=== PATIENT | male | born 2000 | race Caucasian/White ===

== ENCOUNTER 2025-06-04 01:19 | Outpatient (REF) | payer SELFPAY ==
--- OUTSIDE RECORDS SUMMARY | 2025-03-08 11:19 | XMS RPT_ITS ---
Author Name Auto Generated Organization OHIP Care Team Providers Care Airport Engineer Name Role Phone COY DURAN Attending Unavailable MARCO MCKENZIE Primary Care Unavailable LEANA MARTIN Attending Unavailable PROBLEMS DATE TYPE CONDITION / CODE ATTENDING STATUS [facility] 03/08/2025 Admitting Diagnosis Encounter for general adult medical examination without abnormal findings / Z00.00(ICD-10) ROGER COY Active [facility] 03/08/2025 Admitting Diagnosis Encounter for screening for lipoid disorders / Z13.220(ICD-10) [facility] COY Active [facility] 03/08/2025 Admitting Diagnosis Encounter for screening for diseases of the blood and blood-forming organs and certain disorders involving the immune mechanism / Z13.0(ICD-10) ROGER COY Active [facility] 03/08/2025 Admitting Diagnosis Encounter for screening for diabetes mellitus / Z13.1(ICD-10) ROGER COY Active [facility] 03/08/2025 Admitting Diagnosis Pityriasis rosea / L42(ICD-10) ROGER COY Active [facility] 02/08/2025 Active Laceration / UNK(Unknown) LEANA MARTIN Active [facility] PROCEDURES No Procedure Records Found RESULTS PROGRESS NOTE Observed: 03/08/2025 12:27 PM Status: COMPLETED Source: [facility] Consistent with likely pityr iasis rosacea. Start topical steroid twice daily x 14 days. Follow-up for worsening or failure for symptoms to improve OFFICE VISIT Observed: 03/08/2025 11:20 AM Status: COMPLETED Source: [facility] [id number] Raúl Cates [birth year] M Date Provider Department Center 03/08/2025 [id number] DURAN [facility] Family History Problem Relation Age of Onset No Known Problems Mother No Known Problems Father Family Status - Relation Status Age at Mother Alive Father Alive Sister Alive Sister Alive Level of Service:76628 PA INITIAL PREVENTIVE MEDICINE NEW PT AGE 18-39YRS Reason for Visit and Comments: New Patient [542] Rash [463511] - Started on Neck and chest 8-9 months ago (comes and goes) PROGRESS NOTE Observed: 03/08/2025 11:20 AM Status: COMPLETED Source: [facility] Patient was identified by gregg brito and Date of . Health Maintenance Due Topic HIV Screening-declined MMR Vaccines-declined Depression Screening-COMPLETED Varicella Vaccines-DECLINED HPV Vaccines-DECLINED Hepatitis C Screening-DECLINED Hepatitis B Vaccines-DECLINED COVID-19 Vaccine-DECLINED PROGRESS NOTE Observed: 03/08/2025 11:20 AM Status: COMPLETED Source: [facility] Follow-up 03/08/2025 Raúl Cates (: 2000) is a 24 y.o. male , New patient, here for evaluation of the following chief complaint(s): New Patient and Rash (Started on Neck and chest 8-9 months ago (comes and goes) ) ASSESSMENT/PLAN: 1. Annual physical exam 2. 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 Start topical steroid twice daily x 14 days. Follow-up for worsening or failure for symptoms to improve Orders: - triamcinolone (Kenalog) 0.1 % cream; Apply to affected area 2 times daily x 14 days. Avoid face and groin., Normal 3. Screening for hyperlipidemia - Lipid panel 4. Screening for deficiency anemia - CBC 5. Screening for diabetes mellitus - Comprehensive metabolic panel Follow up if symptoms worsen or fail to improve, for as directed pending test results. SUBJECTIVE/OBJECTIVE: HPI - Raúl Cates presents as new patient, previous primary care provider Dr. Daugherty , last seen 2016 by previous provider. Specialists/other providers? No Chief complaint(s): New Patient and Rash (Started on Neck and chest 8-9 months ago (comes and goes) ) Patient's presents to establish care and for physical examination and fasting labs. Reports that he does have a rash that we need to take a look at today that has been there for about 8 or 9 months waxing and waning in regards to severity. It is on his chest and upper back. Reports that it is itchy and red. Heat makes it worse. States it started with a small patch on his chest. Denies any fever or chills and feels fine otherwise. Medical History[1] Surgical History[2] Family History[3] Social History Socioeconomic History Marital status: Single Spouse name: Not on file Number of children: Not on file Years of education: Not on file Highest education level: Not on file Occupational History Not on file Tobacco Use Smoking status: Never Smokeless tobacco: Current Tobacco comments: Quit smoking: occasionally Vaping Use Vaping status: Every Day Substances: Nicotine, Flavoring Devices: Disposable, Pre-filled pod Substance and Sexual Activity Alcohol use: No Alcohol/week: 0.0 standard drinks of alcohol Drug use: Never Sexual activity: Yes Partners: Female control/protection: None Comment: lifetime partners >20. Other Topics Concern Not on file Social History Narrative Lives with dad and GF- Martell of 1 year. 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 HENT: Negative. Eyes: Negative. Last 1 year ago Respiratory: Negative. Cardiovascular: Negative. Gastrointestinal: Negative. Endocrine: Negative. Genitourinary: Negative for difficulty urinating. Musculoskeletal: Negative. Skin: Positive for rash. Chest rash and on his back for past year. Gets worse with heat. Itchy. Neurological: Negative. Hematological: Negative. Psychiatric/Behavioral: Negative. Vitals: 03/08/25 1134 BP: 111/71 Pulse: 92 Resp: 18 Temp: 36.6 ?C (97.8 ?F) TempSrc: Infrared SpO2: 96% Weight: 146 lb 9.6 oz (66.5 kg) Height: 6' 2.8 (1.9 m) Physical Exam Vitals reviewed. Constitutional: General: He is not in acute distress. Appearance: Normal appearance. He is normal weight. He is not ill-appearing or toxic-appearing. HENT: Head: Normocephalic and atraumatic. Right Ear: Tympanic membrane, ear canal and external ear normal. There is no impacted cerumen. Left Ear: Tympanic membrane, ear canal and external ear normal. There is no impacted cerumen. Nose: Nose normal. No congestion or rhinorrhea. Mouth/Throat: Mouth: Mucous membranes are moist. Pharynx: Oropharynx is clear. No oropharyngeal exudate or posterior oropharyngeal erythema. Eyes: Conjunctiva/sclera: Conjunctivae normal. Pupils: Pupils are equal, round, and reactive to light. Cardiovascular: Rate and Rhythm: Normal rate and regular rhythm. Pulses: Normal pulses. Heart sounds: Normal heart sounds. No murmur heard. Pulmonary: Effort: Pulmonary effort is normal. No respiratory distress. Breath sounds: Normal breath sounds. Abdominal: General: Abdomen is flat. Bowel sounds are normal. Palpations: Abdomen is soft. There is no mass. Tenderness: There is no abdominal tenderness. There is no right CVA tenderness or left CVA tenderness. Musculoskeletal: General: Normal range of motion. Cervical back: Normal range of motion and neck supple. No rigidity or tenderness. Right lower leg: No edema. Left lower leg: No edema. Lymphadenopathy: Cervical: No cervical adenopathy. Skin: General: Skin is warm and dry. Findings: Erythema and rash present. Comments: Noted scattered macular patches on erythematous base over upper chest and upper back. [place] patch noted on left anterior chest wall Neurological: General: No focal deficit present. Mental Status: He is alert and oriented to person, place, and time. Psychiatric: Mood and Affect: Mood normal. Behavior: Behavior normal. An electronic signature was used to authenticate this note. ROGER Kc CNP 03/08/2025 12:31 PM [1] History reviewed. No pertinent past medical history. [2] Past Surgical History: Procedure Laterality Date WISDOM TOOTH EXTRACTION [3] Family History Problem Relation Name Age of Onset No Known Problems Mother No Known Problems Father [4] Current Outpatient Medications Medication Sig Dispense Refill triamcinolone (Kenalog) 0.1 % cream Apply to affected area 2 times daily x 14 days. Avoid face and groin. 80 g 0 No current facility-administered medications for this visit. 36 Observed: 02/14/2025 1:10 PM Status: COMPLETED [facility] S: Shantell Girlfriend Patient spoke with [facility] nurse regarding rash B: Onset of symptoms/concern 2-3 months A: rash right neck onto chest and back, no itching, spreading R: Previously schedule for new patient appointment. Home care advise given for rash. Patient understands care advice. No further needs at this time. Patient instructed to call back with new or worsening symptoms. Reason for Disposition Patient wants to be seen Protocols used: Rash or Redness - [id number]-MP 36 Observed: 02/14/2025 1:10 PM Status: COMPLETED [facility] Name of caller: Shantell redman Relation to patient: spouse/SO Contact phone number: [phone] Appointment scheduled with: ROBBIE Martinez CNP Appointment date & time: 03.08.2025 11:20 AM Reason for visit (are you having any symptoms) : Wellness check Transportation issues/ concerns: NA Special accommodations? ( wheel chair, etc) : NA Current medications: Will bring list Any refills need: NA Any chronic conditions the provider should be aware of: NA PROGRESS Observed: 02/08/2025 7:54 PM Status: COMPLETED Source: [facility] ID: [id number] Author: LEANA MARTIN APRN.CNP Service: ? Author Type: Nurse Practitioner Type: Progress Notes Filed: 02/08/2025 20:19 Note Text: Subjective HPI Nontoxic-appearing 24-year-old male presents urgent care chief complaint right arm laceration. Duration of symptoms earlier this morning. Patient states approximately 10 hours ago he was angry and put his hand through a glass window. Did receive a laceration to his right forearm. Right hand dominant. States he did take a shower wash area with soap and water and peroxide. Presents today for evaluation. Concerned about possible depth of wound needing sutures. No numbness no tingling. No decrease sensation. Tetanus greater than 10 years. Past medical history prescription medications allergies reviewed BP 128/70 Pulse 102 Temp 36.8 ?C (98.3 ?F) Resp 16 Wt 63.3 kg (139 lb 8.8 oz) SpO2 98% Hr 93 .Patient presents with: Laceration: right forearm x this am No past medical history on file. No past surgical history on file. ALLERGIES Patient has no known allergies. MEDICATIONS No prescriptions on file. No family history on file. Review of Systems Constitutional: Negative for chills, fever and malaise/fatigue. Musculoskeletal: Negative for back pain, falls, joint pain, myalgias and neck pain. Laceration right forearm Neurological: Negative for dizziness, loss of consciousness, weakness and headaches. Objective Physical Exam Constitutional: General: He is not in acute distress. Appearance: He is not toxic-appearing. HENT: Head: Normocephalic. Nose: Nose normal. Eyes: Pupils: Pupils are equal, round, and reactive to light. Cardiovascular: Rate and Rhythm: Normal rate. Pulmonary: Effort: Pulmonary effort is normal. No respiratory distress. Musculoskeletal: Cervical back: Normal range of motion. Skin: General: Skin is warm and dry. Comments: Approximately a 4 cm x 5 mm laceration noted highlighted area. Neurological: General: No focal deficit present. Mental Status: He is alert. No active bleeding. Laceration fairly superficial. No ligament tendon involvement. No arterial bleeding. Full strength of fingers and wrist. No weaknesses. Neurovascular intact distal to injury. Wound investigated for foreign bodies none. Area cleansed with antimicrobial scrub and copiously irrigated. Zip stitch used to close wound. Dressing applied. ASSESSMENT/PLAN: 1. Laceration of right forearm, initial encounter - ICD9: 881.00, ICD10: S51.811A Laceration of. Of right forearm. Wound approximation achieved. Hemostasis achieved. Dressings applied. Prophylactic antibiotic sent to pharmacy. Tetanus shot updated. Signs symptoms of infection discussed Patient was educated on supportive therapies. Patient will follow up with primary care provider as needed. Patient was instructed to immediately proceed to emergency room for any new, worsening, or symptoms lasting longer than anticipated. The patient's clinical presentation is otherwise unremarkable at this time. Based on exam and clinical finding, the patient is stable for discharge. Plan of care was discussed with patient. Patient verbalizes understanding and agrees to plan of care. This note was generated using Family[employer] software. It may contain errors in wording, punctuation, or spelling. Leana Martin APRN.BIOLOGY FACULTY MEMBER CNOV Observed: 02/08/2025 7:45 PM Status: COMPLETED Source: [facility] RA[facility]L CATES ([id number]) 2000 M Date Time Provider Department 02/08/25 7:45 PM LEANA MARTIN [facility] During your visit today, we recorded the following information about you: Temperature Pulse Respiration Blood pressure 98.3 degrees 102/minute 16/minute 128/70 Weight 63.3 kg Leana Martin APRN.CNP 02/08/2025 8:19 PM Signed Subjective HPI Nontoxic-appearing 24-year-old male presents urgent care chief complaint right arm laceration. Duration of symptoms earlier this morning. Patient states approximately 10 hours ago he was angry and put his hand through a glass window. Did receive a laceration to his right forearm. Right hand dominant. States he did take a shower wash area with soap and water and peroxide. Presents today for evaluation. Concerned about possible depth of wound needing sutures. No numbness no tingling. No decrease sensation. Tetanus greater than 10 years. Past medical history prescription medications allergies reviewed BP 128/70 Pulse 102 Temp 36.8 ?C (98.3 ?F) Resp 16 Wt 63.3 kg (139 lb 8.8 oz) SpO2 98% Hr 93 .Patient presents with: Laceration: right forearm x this am No past medical history on file. No past surgical history on file. ALLERGIES Patient has no known allergies. MEDICATIONS No prescriptions on file. No family history on file. Review of Systems Constitutional: Negative for chills, fever and malaise/fatigue. Musculoskeletal: Negative for back pain, falls, joint pain, myalgias and neck pain. Laceration right forearm Neurological: Negative for dizziness, loss of consciousness, weakness and headaches. Objective Physical Exam Constitutional: General: He is not in acute distress. Appearance: He is not toxic-appearing. HENT: Head: Normocephalic. Nose: Nose normal. Eyes: Pupils: Pupils are equal, round, and reactive to light. Cardiovascular: Rate and Rhythm: Normal rate. Pulmonary: Effort: Pulmonary effort is normal. No respiratory distress. Musculoskeletal: Cervical back: Normal range of motion. Skin: General: Skin is warm and dry. Comments: Approximately a 4 cm x 5 mm laceration noted highlighted area. Neurological: General: No focal deficit present. Mental Status: He is alert. No active bleeding. Laceration fairly superficial. No ligament tendon involvement. No arterial bleeding. Full strength of fingers and wrist. No weaknesses. Neurovascular intact distal to injury. Wound investigated for foreign bodies none. Area cleansed with antimicrobial scrub and copiously irrigated. Zip stitch used to close wound. Dressing applied. ASSESSMENT/PLAN: 1. Laceration of right forearm, initial encounter - ICD9: 881.00, ICD10: S51.811A Laceration of. Of right forearm. Wound approximation achieved. Hemostasis achieved. Dressings applied. Prophylactic antibiotic sent to pharmacy. Tetanus shot updated. Signs symptoms of infection discussed Patient was educated on supportive therapies. Patient will follow up with primary care provider as needed. Patient was instructed to immediately proceed to emergency room for any new, worsening, or symptoms lasting longer than anticipated. The patient's clinical presentation is otherwise unremarkable at this time. Based on exam and clinical finding, the patient is stable for discharge. Plan of care was discussed with patient. Patient verbalizes understanding and agrees to plan of care. This note was generated using FamilyID software. It may contain errors in wording, punctuation, or spelling. Leana Martin APRN.BIOLOGY FACULTY MEMBER Allergies As of Date: 02/08/2025 (No Known Allergies) Date Reviewed: 02/08/2025 Reviewed by: Leana Martin APRN.BIOLOGY FACULTY MEMBER - Fully Assessed Reason for Visit: Laceration [1747] Cmt: right forearm x this am Primary Visit Diagnosis:Laceration of right forearm, initial encounter [S51.811A] Order(s):TDAP VACCINE, AGE 7+ YR (ADACEL, BOOSTRIX) [[id number]] Order #: [id number] cephALEXin (KEFLEX) 500 mg capsuleTake 1 capsule by mouth two times a day for 3 days.Disp: 6 capsuleRfl: 0 Prescriptions as of 02/08/2025 - cephALEXin (KEFLEX) 500 mg capsule Take 1 capsule by mouth two times a day for 3 days. Problem List As Of Date: 02/08/2025 (None) Prescriptions ordered this encounter Disp Refills Start End CEPHALEXIN 500 MG CAPSULE 6 ca* 0 02/08/2025 02/11/2025 Route: PO Sig: Take 1 capsule by mouth two times a day for 3 days. Level of Service: OFFICE/OUTPATIENT NEW LOW MDM 30 MINUTES [56809] LOS History for Encounter Level of Service: OFFICE/OUTPATIENT ESTABLISHED [facility] MDM 30 MIN[32715] Date AND Time: 02-08-2025 8:18 PM Recorded by User: LEANA MARTIN Encounter Status:Closed by LEANA MARTIN on 02/08/25 ALLERGIES DATE TYPE / CODE NAME / CODE REACTION SEVERITY SOURCE Drug Class/[id number](SNO MED CT) NO KNOWN ALLERGIES [facility] ENCOUNTERS ADMIT/DISCHARGE ACCOUNT NUMBER ADMITTING ENCOUNTER CLASS LOC ATION SOURCE 03/08/2025/ 5 [id number] Ambulatory Buildin [id number] [facility] 02/08/2025/ 5 [id number] [facility] PAYERS ENCOUNTER GUARANTOR PAYER SUBSCRIBER SOURCE 03/08/2025 Primary Insurance:CHARLY RODRIGUEZ CROSSPolicy Number: [id number] e Date:[id number] Name:Vipul CARTER: [id number] [place] [address] [facility] 02/08/2025 Primary Insuranc e:BLUE CARD PPO OOSPolicy Number: [id number] e Date:[id number] Name:Emily CARTER: [id number] [place] [address] [facility]
[2025-06-04 01:20] VITALS: BP 127/83; PULSE 98; RESP 16; TEMP 36.5; O2SAT 98
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
[2025-06-04 03:30] VITALS: BP 123/88; PULSE 88; RESP 20; TEMP 36.6; O2SAT 98
== END 2025-06-04 03:31 ==
LOC: ED 01:19
PROVIDERS: Visit Provider Emergency Medicine
DX: S09.90XA Unspecified injury of head, initial encounter (principal); S16.1XXA Strain of muscle, fascia and tendon at neck level, initial encounter; S60.511A Abrasion of right hand, initial encounter; S60.812A Abrasion of left wrist, initial encounter; F17.290 Nicotine dependence, other tobacco product, uncomplicated
CPT/HCPCS: 70450; 71046; 72125